=== PATIENT | male | born 1955 | race Caucasian/White ===

== ENCOUNTER 2018-08-17 13:20 | Emergency (ER) | payer OTHER ==
[~2018-08-17] VITALS: Ht 175.3 cm; Wt 79.4 kg
[~2018-08-17 13:20] MED LIST: ABAC300; ACET325 PO; ATOR80; ATOR80 PO; AZIT250; CARB200; CARB200 PO; CARBITROL; CARBITROL PO; DOC250 PO; DOCCAL240 PO; HCTZ 25MG QD; HYDCHL25; HYDCHL25 PO; HYDCHLSU PO; HYDCOR1TC TOP; LAMO100 PO; LAMO50 PO; LAVAP17G PO; LEVE500 PO; LIDO2L MM; LISI5 PO; LOPE2C PO; Lamictal200 MG; NAPR500; POLY17UD PO; POTCHL10ER PO; PROC10ER PO; PROC5 PO; RANI150; RANI150 PO; RXONDA4ODT MM; SERT100; SERT100 PO; SPIHYD PO; TUSSIN DM PO; Venlafaxine HC100 MG PO; Zofran Odt4 MG SL; [UNRECOGNIZED DRUG - OTHER]; [UNRECOGNIZED DRUG - OTHER]; [UNRECOGNIZED DRUG - OTHER]; [UNRECOGNIZED DRUG - OTHER]
== END 2018-08-17 14:29 | disposition home or self-care (01) ==
LOC: ER 13:20
DX: S01.01XA Laceration without foreign body of scalp, initial encounter (principal); Z88.2 Allergy status to sulfonamides; Z88.8 Allergy status to other drugs, medicaments and biological substances; Z79.899 Other long term (current) drug therapy; W22.8XXA Striking against or struck by other objects, initial encounter
CPT/HCPCS: 12001; 99282-25

== ENCOUNTER 2019-01-01 17:59 | Emergency (ER) | payer OTHER ==
[~2019-01-01] VITALS: Ht 177.8 cm; Wt 77.1 kg
== END 2019-01-01 19:20 | disposition home or self-care (01) ==
LOC: ER 17:59
DX: S01.81XA Laceration without foreign body of other part of head, initial encounter (principal); W18.30XA Fall on same level, unspecified, initial encounter; Z88.2 Allergy status to sulfonamides; Z88.8 Allergy status to other drugs, medicaments and biological substances; Z79.899 Other long term (current) drug therapy
CPT/HCPCS: 12011; 99282-25

== ENCOUNTER → 2019-10-06 | Outpatient (CLI) | payer OTHER | END | disposition home or self-care (01) | LOC: LAB SHORT 11:15 → OLS 11:15 → LAB FUT 10-05 11:15 | DX: R35.0 Frequency of micturition (principal) | CPT/HCPCS: 87086 ==

== ENCOUNTER → 2019-10-09 | Outpatient (CLI) | payer OTHER | END | disposition home or self-care (01) | LOC: LAB SHORT 10:01 → LAB 10:01 | DX: H16.001 Unspecified corneal ulcer, right eye (principal) | CPT/HCPCS: 87070; 87205 ==

== ENCOUNTER 2019-10-24 09:17 | Day surgery (SDC) | payer OTHER ==
[~2019-10-24 09:17] MED LIST changes: +ACET500 PO; +ASCO500 PO; +FERSU300 PO; -HYDCHL25; +Periogard473 ML PO
== END 2019-10-24 22:45 ==
LOC: ATC 09:17
DX: H16.001 Unspecified corneal ulcer, right eye (principal); F41.9 Anxiety disorder, unspecified; F32.9 Major depressive disorder, single episode, unspecified; Z79.899 Other long term (current) drug therapy; Z88.8 Allergy status to other drugs, medicaments and biological substances; Z88.2 Allergy status to sulfonamides
CPT/HCPCS: J3260; J3370

== ENCOUNTER 2019-11-06 15:07 | Day surgery (SDC) | payer OTHER | END 2019-11-06 16:25 | disposition home or self-care (01) | LOC: ATC 15:07 | DX: H16.001 Unspecified corneal ulcer, right eye (principal); I10 Essential (primary) hypertension; E78.5 Hyperlipidemia, unspecified; F41.9 Anxiety disorder, unspecified; K21.9 Gastro-esophageal reflux disease without esophagitis; Z88.2 Allergy status to sulfonamides; Z79.899 Other long term (current) drug therapy; Z88.8 Allergy status to other drugs, medicaments and biological substances | CPT/HCPCS: J3260; J3370 ==

== ENCOUNTER → 2019-11-20 | Outpatient (CLI) | payer OTHER | END | disposition home or self-care (01) | LOC: LAB SHORT 10:15 → LAB 10:15 | DX: H16.001 Unspecified corneal ulcer, right eye (principal) | CPT/HCPCS: 87070; 87205 ==

== ENCOUNTER 2020-04-16 09:47 | Observation (INO) | payer OTHER ==
[~2020-04-16] VITALS: Ht 170.2 cm; Wt 70.0 kg
[2020-04-16] MEDS ORDERED: FAMO20 (10:39)
[2020-04-16 10:40] LABS: BASOPHILS ABSOLUTE AUTO 0.02 K/mm3 (0.00-0.23); BASOPHILS PERCENT AUTO 0 % (0-2); EOSINOPHILS ABSOLUTE AUTO 0.03 K/mm3 (0.00-0.68); EOSINOPHILS PERCENT AUTO 0 % (0-6); Hematocrit 42.4 % (37.0-53.0); Hemoglobin 13.2 g/dL (13.5-17.5); IMMATURE GRAN ABSOLUTE AUTO 0.06 K/mm3 (0.00-0.10); IMMATURE GRAN PERCENT AUTO 0 % (0-1); LYMPHOCYTES ABSOLUTE AUTO 1.73 K/mm3 (0.84-5.20); LYMPHOCYTES PERCENT AUTO 10 % (21-46); MONOCYTES ABSOLUTE AUTO 0.97 K/mm3 (0.16-1.47); MONOCYTES PERCENT AUTO 6 % (4-13); Mean Corpuscular HGB Conc 31.1 g/dL (31.5-36.5); Mean Corpuscular Volume 87 fL (80-100); Mean Platelet Volume 10.4 fL (9.1-12.4); NEUTROPHILS ABSOLUTE AUTO 14.05 K/mm3 (1.96-9.15); NEUTROPHILS PERCENT AUTO 83 % (41-73); Platelet Count 533 K/mm3 (150-400); RDW Coefficient Variation 15.9 % (11.7-14.2); RDW Standard Deviation 50.7 fL (35.1-46.3); Red Blood Cell Count 4.89 M/mm3 (4.30-5.90); White Blood Cell Count 16.86 K/mm3 (4.00-11.30)
[2020-04-16 10:50] LABS: Alanine Aminotransfer (ALT/SGP 23 U/L (12-78); Albumin, Blood 3.6 g/dL (3.4-5.0); Albumin/Globulin Ratio 1.1 (0.8-1.8); Alk Phos 185 U/L (50-136); Anion Gap 8 mmol/L (6-16); Aspartate Aminotrans (AST/SGOT 15 U/L (12-37); Bilirubin, Total 0.5 mg/dL (0.1-1.0); Blood Urea Nitrogen 30 mg/dL (8-24); Bun/Creatinine Ratio 30.3 (12.0-20.0); CO2, Blood 30 mmol/L (21-32); Calcium, Blood 9.4 mg/dL (8.5-10.1); Chloride, Blood 98 mmol/L (98-108); Creatinine, Blood 0.99 mg/dL (0.60-1.20); Globulin, Blood 3.4 g/dL (2.2-4.0); Glomerular Filtration Rate >60 (60-); Glucose, Blood 151 mg/dL (70-99); Potassium, Blood 3.6 mmol/L (3.5-5.5); Sodium, Blood 136 mmol/L (136-145)
[2020-04-16 11:22] LABS: Prothrombin Time Results 10.7 Sec (9.7-11.5)
--- NOTE | 2020-04-16 17:58 | NUR ---
SHIFT SUMMARY ED ADMIT THIS AFTERNOON. PATIENT LIVES AT [facility] AND HAD CAREGIVER AT BEDSIDE TO ANSWER ADMISSION HISTORY. PATIENT UP STAND PIVOT TO BSC. PATIENT GIVEN IM ZYPREXA IN ED FOR AGITATION AND FLUID BOLUS FOR HYPOTENSION. PATIENT NAPPING THE REST OF SHIFT. DR. JANG CONSULTED. PATIENT TO HAVE UPPER ENDOSCOPY TOMORROW AFTERNOON.
[2020-04-16 18:49] LABS: Hematocrit 36.1 % (37.0-53.0); Hemoglobin 11.1 g/dL (13.5-17.5)
--- NOTE | 2020-04-16 23:51 | NUR ---
Has been resting quietly with efw interruptins as of this writing. Awakened for HS meds, no complaints voiced. No noted hemoptysis. IVF infusing. Bed alarm on. Call light in reach
--- NOTE | 2020-04-17 03:28 | NUR ---
PT REFUSED TO LET ME CHECK ATTENDS OR CHANGE ATTENDS, NURSE NOTIFIED
--- NOTE | 2020-04-17 03:29 | NUR ---
SHIFT SUMMARY HAS BEEN RESTING QUIETLY WITH FEW INTERRUPTIONS THIS SHIFT. NO NOTED HEMOPTYSIS. NO REPORTED TARRY STOOLS. TOLERATED HS MEDS WELL. IVF OF NS CONTINUES AT 75 ML/HR ORDERED. WHEN AWAKE DURING ROUNDING, NOTED APPEARED SUSPICIOUS OF STAFF. NO COMPLAINTS VOICED. CALL LIGHT IN REACH. NO NOTED DISTRESS.
[2020-04-17 05:19] LABS: Hematocrit 32.3 % (37.0-53.0); Hemoglobin 9.8 g/dL (13.5-17.5); Mean Corpuscular HGB 27.1 pg (26.0-34.0); Mean Corpuscular HGB Conc 30.3 g/dL (31.5-36.5); Mean Corpuscular Volume 89 fL (80-100); Platelet Count 319 K/mm3 (150-400); RDW Coefficient Variation 16.2 % (11.7-14.2); RDW Standard Deviation 53.5 fL (35.1-46.3); Red Blood Cell Count 3.62 M/mm3 (4.30-5.90); White Blood Cell Count 7.44 K/mm3 (4.00-11.30)
[2020-04-17 05:34] LABS: Anion Gap 5 mmol/L (6-16); Blood Urea Nitrogen 20 mg/dL (8-24); Bun/Creatinine Ratio 25.3 (12.0-20.0); CO2, Blood 29 mmol/L (21-32); Calcium, Blood 8.1 mg/dL (8.5-10.1); Chloride, Blood 110 mmol/L (98-108); Creatinine, Blood 0.79 mg/dL (0.60-1.20); Glomerular Filtration Rate >60 (60-); Glucose, Blood 90 mg/dL (70-99); Potassium, Blood 3.4 mmol/L (3.5-5.5); Sodium, Blood 144 mmol/L (136-145)
--- NOTE | 2020-04-17 10:55 | NUR ---
HADLEY PULLED IV PATIENT PULLED OUT IV AGAIN THIS AM. DR. REDD INFORMED. NEW ORDERS TO CHANGE IV POTASSIUM TO PO AND LEAVE IV OUT UNTIL TIME FOR ENDOSCOPY.
[2020-04-17 12:20] LABS: Hematocrit 34.4 % (37.0-53.0); Hemoglobin 10.4 g/dL (13.5-17.5)
[2020-04-17 13:00] LABS: Percent Saturation 9.3 % (20.0-50.0)
--- NOTE | 2020-04-17 13:54 | NUR ---
04/17/20 1354 Ralph Arias History, Chart, Medications and Allergies reviewed before start of procedure.MONITOR INTACT WITH CONTINUOUS PULSE OXIMETRY AND INTERMITTENT BP.3-LEAD EKG REVIEWED WITH PHYSICIAN PRIOR TO START OF PROCEDURE.O2 VIA N/C INTACT THROUGHOUT SEDATION/PROCEDURE. PATIENT DETERMINED TO BE ASA APPROPRIATE FOR PROPOFOL SEDATION PRIOR TO START OF PROCEDURE BY DR. JANG.
[2020-04-17] MEDS ORDERED: PANT40 PO (15:37)
--- NOTE | 2020-04-17 16:13 | NUR ---
DISCHARGE PATIENT DISCHARGED BACK TO [facility] VIA WHEELCHAIR TRANSPORT. CAREGIVER UPDATED AT BEDSIDE. DISCHARGE PACKET WITH EMPLOYMENT TRAINING SPECIALIST. IV REMOVED WITHOUT DIFFICULTY. BELONGIGS WITH PATIENT.
== END 2020-04-17 15:50 | disposition home or self-care (01) ==
LOC: ER 09:47 → MEDS 09:48
PROVIDERS: Emergency Medicine; Family Medicine; Internal Medicine Gastroenterology; Nurse Practitioner Acute Care; ADMIT Hospitalist
PROC: 0DJ08ZZ Inspection of Upper Intestinal Tract, Via Natural or Artificial Opening Endoscopic (ICD-10-PCS; principal; 2020-04-17 14:00)
DX: K22.11 Ulcer of esophagus with bleeding (principal); K44.9 Diaphragmatic hernia without obstruction or gangrene; I95.9 Hypotension, unspecified; K59.00 Constipation, unspecified; D62 Acute posthemorrhagic anemia; I10 Essential (primary) hypertension; G40.909 Epilepsy, unspecified, not intractable, without status epilepticus; E78.5 Hyperlipidemia, unspecified; F41.9 Anxiety disorder, unspecified; Z79.899 Other long term (current) drug therapy; K21.01 Gastro-esophageal reflux disease with esophagitis, with bleeding; E87.6 Hypokalemia; G80.9 Cerebral palsy, unspecified; Z88.2 Allergy status to sulfonamides; Z88.5 Allergy status to narcotic agent; Z20.828 Contact with and (suspected) exposure to other viral communicable diseases
CPT/HCPCS: 36415; 74177; 80048; 80053; 82272; 82607; 82728; 82746; 83540; 83550; 83690; 85014; 85018; 85025; 85027; 85610; 86850; 86900; 86901; 93005; 93010; 96361; 96365-59; 96366; 96367; 96372-59; 96375; 96376; 99285-25; A9270; C9113; G0008; G0378; J2250; J2354; J2405; J2704; J7030; J7120; Q2038; Q9967; U0003

== ENCOUNTER 2020-06-20 07:39 | Day surgery (SDC) | payer OTHER ==
[~2020-06-20] VITALS: Ht 172.7 cm; Wt 67.3 kg
[~2020-06-20 07:39] MED LIST changes: +FAMO20; +PANT40 PO
== END 2020-06-20 09:38 | disposition home or self-care (01) ==
LOC: ORSCSDS 07:39
PROVIDERS: Internal Medicine Gastroenterology
PROC: 0DB58ZX Excision of Esophagus, Via Natural or Artificial Opening Endoscopic, Diagnostic (ICD-10-PCS; principal; 2020-06-20 09:00)
DX: K92.1 Melena (principal); K22.70 Barrett's esophagus without dysplasia; K44.9 Diaphragmatic hernia without obstruction or gangrene; Z87.19 Personal history of other diseases of the digestive system; I10 Essential (primary) hypertension; E78.5 Hyperlipidemia, unspecified; F41.9 Anxiety disorder, unspecified; G80.8 Other cerebral palsy; Z79.899 Other long term (current) drug therapy
CPT/HCPCS: 88305; J0330; J0461; J2250; J2405; J2704; J7120

== ENCOUNTER 2022-09-26 10:29 | Emergency (ER) | payer OTHER ==
[~2022-09-26] VITALS: Ht 170.2 cm; Wt 79.4 kg
== END 2022-09-26 12:39 | disposition home or self-care (01) ==
LOC: ER 10:29
DX: S22.42XA Multiple fractures of ribs, left side, initial encounter for closed fracture (principal); W19.XXXA Unspecified fall, initial encounter
CPT/HCPCS: 71101

== ENCOUNTER 2025-06-05 10:36 | Emergency (ER) | payer OTHER ==
[~2025-06-05] VITALS: Ht 167.6 cm; Wt 86.2 kg
[2025-06-05 10:53] VITALS: BP 172/98
[2025-06-05 11:49] LABS: BASOPHILS ABSOLUTE AUTO 0.02 K/mm3 (0.00-0.23); BASOPHILS PERCENT AUTO 0 % (0-2); EOSINOPHILS ABSOLUTE AUTO 0.19 K/mm3 (0.00-0.68); EOSINOPHILS PERCENT AUTO 3 % (0-6); Hematocrit 32.7 % (37.0-53.0); Hemoglobin 11.1 g/dL (13.5-17.5); IMMATURE GRAN ABSOLUTE AUTO 0.02 K/mm3 (0.00-0.10); IMMATURE GRAN PERCENT AUTO 0 % (0-1); LYMPHOCYTES ABSOLUTE AUTO 1.31 K/mm3 (0.84-5.20); LYMPHOCYTES PERCENT AUTO 22 % (21-46); MONOCYTES ABSOLUTE AUTO 0.60 K/mm3 (0.16-1.47); MONOCYTES PERCENT AUTO 10 % (4-13); Mean Corpuscular HGB Conc 33.9 g/dL (31.5-36.5); Mean Corpuscular Volume 90 fL (80-100); NEUTROPHILS ABSOLUTE AUTO 3.95 K/mm3 (1.96-9.15); NEUTROPHILS PERCENT AUTO 65 % (41-73); NRBC ABSOLUTE 0.00 K/mm3 (0.00-0.02); NRBC Auto 0.0 /100 WBC (0.0-0.2); Platelet Count 306 K/mm3 (150-400); RDW Coefficient Variation 12.6 % (11.7-14.2); RDW Standard Deviation 41.8 fL (35.1-46.3)
[2025-06-05 12:28] LABS: Alanine Aminotransfer (ALT/SGP 21.0 U/L (12-78); Albumin, Blood 3.8 g/dL (3.4-5.0); Albumin/Globulin Ratio 1.1 (0.8-1.8); Anion Gap 9.0 mmol/L (3-11); Aspartate Aminotrans (AST/SGOT 14.0 U/L (12-37); Bilirubin, Total 0.4 mg/dL (0.1-1.0); Blood Urea Nitrogen 21.0 mg/dL (8-24); CO2, Blood 26.0 mmol/L (21-32); Calcium, Blood 9.4 mg/dL (8.5-10.1); Chloride, Blood 108.0 mmol/L (98-108); Creatinine, Blood 1.55 mg/dL (0.60-1.20); Globulin, Blood 3.6 g/dL (2.2-4.0); Glucose, Blood 123.0 mg/dL (70-99); Potassium, Blood 3.0 mmol/L (3.5-5.5); Sodium, Blood 140.0 mmol/L (136-145); Total Protein, Blood 7.4 g/dL (6.4-8.2)
[2025-06-05] MEDS ORDERED: Norvasc5 MG PO (13:15)
== END 2025-06-05 13:24 | disposition home or self-care (01) ==
LOC: ER 10:36
DX: I10 Essential (primary) hypertension (principal); N17.9 Acute kidney failure, unspecified; E87.6 Hypokalemia; G40.909 Epilepsy, unspecified, not intractable, without status epilepticus; F79 Unspecified intellectual disabilities
CPT/HCPCS: 80053; 84484; 85025; 93005; 93010; 99283-25; A9270